=== PATIENT | female | born 1935 | race Caucasian/White ===

== ENCOUNTER → 2016-07-01 | Outpatient (CLI) | payer MEDICARE ==
[~2016-07-01] MED LIST: ASCO500T20 PO; ASPI-860 PO; CALC600T12 PO; CHOL200025 PO; CRAN500C3 PO; FLC100T PO; GLUC100016 PO; HCTZ12.5T PO; LACT1CAP62 PO; LSNP20T PO; NFAMINITAB PO; OMG1KC PO; VITA80006 PO; WARF5VIA PO
--- NOTE | 2016-07-01 13:21 | Diagnostic Imaging Report ---
INDICATION: Postoperative evaluation. COMPARISON: 08/14/2015 FINDINGS: Four views of the right shoulder are obtained. 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 No unusual lucency or reaction is seen about the prosthetic components which appear in good alignment. No acute fracture or osseous destructive process is suspected. 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 No acute abnormality is demonstrated. Dictated by: Dictated on workstation # [id number]
== END ==
LOC: RAD 12:28
PROVIDERS: ATTEND Orthopaedic Surgery
DX: Z98.890 Other specified postprocedural states (principal); Z09 Encounter for follow-up examination after completed treatment for conditions other than malignant neoplasm
CPT/HCPCS: 73030